=== PATIENT | female | born 1985 | race Two or more races ===

== ENCOUNTER 2019-11-05 09:40 | Emergency (ER) | payer BC, OTHER ==
[~2019-11-05] VITALS: Ht 170.2 cm; Wt 110.1 kg
[2019-11-05 09:45] VITALS: BP 147/83
--- NOTE | 2019-11-05 10:02 | NUR ---
TO [facility] FROM [facility]
[2019-11-05 10:28] LABS: BASOPHILS # (AUTO) 0.03 x10^3/uL (0-0.1); BASOPHILS % (AUTO) 1 % (0-1); EOSINOPHILS % (AUTO) 3 % (1-7); LYMPHOCYTES # (AUTO) 2.19 x10^3/uL (1-3.4); LYMPHOCYTES % (AUTO) 29 % (22-44); MD NO; MEAN CORPUSCULAR HEMOGLOBIN 32.3 pg (27.0-34.8); MEAN CORPUSCULAR HGB CONC 33.3 g/dL (32.4-35.8); MEAN CORPUSCULAR VOLUME 97.1 fL (80-100); MEAN PLATELET VOLUME 8.5 fL (7.4-10.4); MONOCYTES # (AUTO) 0.51 x10^3/uL (0.2-0.8); MONOCYTES % (AUTO) 7 % (2-9); NEUTROPHILS # (AUTO) 4.72 x10^3/uL (1.8-6.8); NEUTROPHILS % (AUTO) 62 % (42-75); PLATELET COUNT 334 x10^3/uL (130-400); RED CELL DISTRIBUTION WIDTH 14.5 % (9.6-15.2)
[2019-11-05 10:39] LABS: ALBUMIN 3.5 g/dL (3.4-5.0); ANION GAP 7 mmol/L (5-15); CALCIUM 8.1 mg/dL (8.5-10.1); CHLORIDE 110 mmol/L (98-107)
--- NOTE | 2019-11-05 10:50 | NUR ---
PT TO ULTRASOUND
[2019-11-05 10:57] LABS: CREATININE 0.68 mg/dL (0.55-1.02)
[2019-11-05 10:58] LABS: ALANINE AMINOTRANSFERASE 46 U/L (12-78); ALKALINE PHOSPHATASE 52 U/L (45-117); BILIRUBIN,TOTAL 0.4 mg/dL (0.2-1.0); TOTAL PROTEIN 7.1 g/dL (6.4-8.2)
[2019-11-05 11:37] LABS: MICROSCOPIC AUTO
== END 2019-11-05 12:18 | disposition home or self-care (01) ==
LOC: ED 12:00
DX: O02.0 Blighted ovum and nonhydatidiform mole (principal)
CPT/HCPCS: 36415; 76801; 80053; 81001; 84702; 85025; 86901; 99284

== ENCOUNTER 2020-06-30 19:07 | Emergency (ER) | payer BC ==
[~2020-06-30] VITALS: Ht 170.2 cm; Wt 109.3 kg
[2020-06-30 19:12] VITALS: BP 143/87
--- NOTE | 2020-06-30 19:40 | NUR ---
34 YEAR OLD FEMALE TO ED FOR + DAUGHERTY TEST 2 DAYS AGO, WITH NONPRODUCTIVE COUGH, SUBJECTIVE FEVER, BODY ACHES, SORE THROAT, AND NAUSEA AND VOMITING. SHE STATES SHE IS 21 WEEKS WITH NO COMPLAINTS OF VAGINAL BLEEDING OR DISCHARGE AND NO PELVIC CRAMPING. SHE ONLY TAKES SYNTHROID FOR PRESCRIBED MEDICATION. VSS.
--- NOTE | 2020-06-30 20:44 | NUR ---
[facility] called for request of heart tones.
== END 2020-06-30 21:40 | disposition home or self-care (01) ==
LOC: ED 20:01
DX: O99.512 Diseases of the respiratory system complicating pregnancy, second trimester (principal); J12.9 Viral pneumonia, unspecified; R00.0 Tachycardia, unspecified; Z11.59 Encounter for screening for other viral diseases; Z3A.21 21 weeks gestation of pregnancy
CPT/HCPCS: 71045; 93005; 99283